=== PATIENT | female | born 1955 | race Caucasian/White ===

== ENCOUNTER 2023-02-26 12:18 | Inpatient (IN) | payer OTHER ==
[~2023-02-26] VITALS: Ht 154.9 cm; Wt 64.9 kg
--- NOTE | 2023-02-26 12:20 | NUR ---
MANISH FROM URGENT CARE THIS MORNING COMPLAINING ABOUT CHEST HEAVINESS FOR X1 DAY WITH LEFT ARM WEAKNESS AND DIZZINESS. ASSISTED TO ER BED 4 PLACED ON MAINTENANCE CLERK. AWAITING MD FOR EVAL.
[2023-02-26 12:38] LABS: BASOPHILS # (AUTO) 0.1 K/uL (0.0-0.2); BASOPHILS % (AUTO) 0.7 % (0.0-2.0); EOSINOPHILS % (AUTO) 0.6 % (0.0-6.0); HEMATOCRIT 37 % (33-45); HEMOGLOBIN 11.9 g/dL (11.5-14.8); LYMPHOCYTES # (AUTO) 2.1 K/uL (0.8-4.8); LYMPHOCYTES % (AUTO) 18.5 % (20.0-44.0); MEAN CORPUSCULAR HGB CONC 32 g/dl (31.0-36.0); MEAN CORPUSCULAR VOLUME 89 fL (82-100); MONOCYTES # (AUTO) 0.6 K/uL (0.1-1.30); MONOCYTES % (AUTO) 5.3 % (2.0-12.0); NEUTROPHILS # (AUTO) 8.5 K/uL (1.8-8.9); NEUTROPHILS % (AUTO) 74.9 % (43.0-81.0); PLATELET COUNT (AUTO) 324 K/uL (150-450); RED BLOOD CELL COUNT(AUTO) 4.13 MIL/uL (4.0-5.2); WHITE BLOOD COUNT (AUTO) 11.3 K/uL (4.3-11.0)
[2023-02-26] MEDS ORDERED: ADENOSINE 6 MG/2 ML VIAL ONE ×2 (12:45→15:38)
[2023-02-26 12:46] LABS: CALCIUM, SERUM 9.1 mg/dL (8.5-10.1); CARBON DIOXIDE 22 mmol/L (21-32); CHLORIDE 105 mmol/L (98-107); CREATININE 1.2 mg/dL (0.6-1.3); GLUCOSE 123 mg/dL (74-106); POTASSIUM 4.4 mmol/L (3.5-5.1); SODIUM SERUM 136 mmol/L (136-145); UREA NITROGEN, BLOOD 20 mg/dL (7-18)
--- NOTE | 2023-02-26 12:50 | NUR ---
ADENOSINE 6MG IV PUSH GIVEN ORDERED , PATIENT PLACED ON 12 LEADS CRYPTOLOGIC TECHNICIAN TECHNICAL WITH RT,RN AT BEDSIDE. PATIENT HEART RATE CONVERTED FROM 140 TO 80 , NO SIGNS AND SYMPTOMS OF DISTRESS THIS MOMENT , VITAL SIGN STABLE. PLAN OF CARE CONTINUES .
[2023-02-26] MEDS ORDERED: ADENOSINE 6 MG/2 ML VIAL IVP ONE ×2 (13:00→16:00)
[2023-02-26 13:03] LABS: ALANINE AMINOTRANSFERASE 29 U/L (12-78); ALBUMIN 3.5 g/dL (3.4-5.0); ALKALINE PHOSPHATASE 74 U/L (46-116); ASPARTATE AMINOTRANSFERASE 22 U/L (15-37); BILIRUBIN,DIRECT 0.1 mg/dL (0.0-0.2); BILIRUBIN,TOTAL 0.3 mg/dL (0.2-1.0); TOTAL PROTEIN, SERUM 7.5 g/dL (6.4-8.2)
[2023-02-26] MEDS ORDERED: ASPIRIN 325 MG TABLET ONE (13:09)
--- NOTE | 2023-02-26 13:15 | NUR ---
COVID SWAB TAKEN SENT TO LAB
[2023-02-26] MEDS ORDERED: ASPIRIN 325 MG TABLET PO ONE (13:30)
[2023-02-26] MEDS ORDERED: ONDANSETRON HCL/PF 4 MG/2 ML VIAL IVP PRN (14:00)
[2023-02-26] MEDS ORDERED: ACETAMINOPHEN 325 MG TABLET PO PRN (14:00)
--- NOTE | 2023-02-26 14:21 | NUR ---
bed assigned= [id number]
[2023-02-26] MEDS ORDERED: VALS80TA31 PO (14:28)
[2023-02-26] MEDS ORDERED: SIMV-49 PO (14:28)
[2023-02-26] MEDS ORDERED: BUPR-319 PO (14:28)
[2023-02-26] MEDS ORDERED: ALEN35TA51 PO (14:28)
[2023-02-26] MEDS ORDERED: GABA300C PO (14:28)
--- NOTE | 2023-02-26 14:37 | NUR ---
REPORT GIVEN TO JARRELL BRIDGES
--- NOTE | 2023-02-26 15:28 | NUR ---
HEART RATE WENT REMINGTON TO 140'S , MADE AWARE , REPEAT EKG AWARE
--- NOTE | 2023-02-26 16:04 | NUR ---
2ND ADENOSINE 6MG GIVEN IV PUSH , RT RN AT BEDSIDE. HEART RATE CONVERTED TO 140 TO 80. NO SIGNS AND SYMPTOMS OF DISTRESS POST MEDICATION ADMINISTRATION. WILL TRANSFER PATIENT TO ROOM ASSIGNMENT.
--- NOTE | 2023-02-26 16:12 | NUR ---
QUILT STUFFER NOTE PER LAB, PATIENT HAS TROPONIN LEVEL OF 174. DR TERRAZAS NOTIFIED.
--- NOTE | 2023-02-26 16:20 | NUR ---
BRIM CUTTER NOTE RECEIVED PATIENT FROM ER.
--- NOTE | 2023-02-26 16:22 | NUR ---
MOVED TO INPATIENT ROOM SAFELY PER ACLS PROTOCOL
[2023-02-26] MEDS: ENOXAPARIN SODIUM 40 MG/0.4 ML DISP.SYRIN SQ SCH (17:30)
[2023-02-26] MEDS ORDERED: GABAPENTIN 300 MG CAPSULE PO PRN (18:30)
[2023-02-26] MEDS ORDERED: VALSARTAN 80 MG TABLET PO SCH (18:30)
[2023-02-26] MEDS: SIMVASTATIN 20 MG TABLET PO SCH (18:35)
--- NOTE | 2023-02-26 18:59 | NUR ---
RN NOTES FOR 1700 MEDS MEDICATION NOT IN [facility] UNTIL 1830. TOO CLOSE TO NEXT DOSE.
--- NOTE | 2023-02-26 19:34 | NUR ---
MANAGER COUNCIL CLOSING NOTES PATIENT IN BED WATCHING TV. A/O X4. ON ROOM AIR WITH NO S/S OF DISTRESS OR SOB. BREATHING EVEN AND UNLABORED. CURRENTLY ON TELE MONITOR SHOWING SR 76. DEFIBRILLATOR PADS ON IN CASE OF EMERGENCY. PATIENT IS AMBULATORY. SKIN INTACT. SAFETY PRECAUTIONS IN PLACE WITH BED IN LOWEST AND LOCKED POSITION, SIDE RAILS UP X2, AND CALL LIGHT AND TABLE WITHIN REACH. WILL ENDORSE TO ONCOMING SHIFT FOR SERINA.
[2023-02-26 20:00] VITALS: BP 105/65
--- NOTE | 2023-02-26 20:39 | NUR ---
RN NOTE RECEIVED CRITICAL FROM LAB. TROPONIN 230, TRENDING UP FROM 174. EDENILSON CARLISLE NOTIFIED WITH NO NEW ORDERS.
--- NOTE | 2023-02-26 22:03 | NUR ---
VETERINARIAN ASSISTANT OPENING NOTE PT RECEIVED IN BED, AWAKE, A/O X4, CALM, COOPERATIVE. PER PT, SHE WAS PICKING UP A SPOON TO POUR CAT FOOD INTO BOWL, WHEN SUDDENLY SHE LOST CONTROL OF ARM MOVEMENT AND STARTED EXPERIENCING CHEST PAIN. PT REPORTS PAIN IS LOCATED UNDER HER LEFT BREAST, NON-RADIATING, FEELS LIKE A "BRICK IS PUTTING PRESSURE". PT ALSO REPORTS OF HISTORY OF RECEIVING SURGERY ON HER LEFT FOOT FOR OSTEOPOROSIS AND CURRENTLY TAKES ALENDRONATE 35 MG; OTHER HISTORY INCLUDES HAVING SURGERY FOR LEFT ROTATOR CUFF INJURY. PT ON RA WITH O2SAT OF 97%; NO S/S OF RESP DISTRESS. PT ATTACHED TO TELE MONITOR, SR WITH HR OF 71; WILL MONITOR FOR ANY CHANGES TO RHYTHM. IV ACCESS ON RAC 18G INTACT AND PATENT, FLUSHES EASILY WITH NO RESISTANCE. BED IN LOWEST POSITION, CALL LIGHT WITHIN REACH, SIDE RAILS UP X2. WILL CONTINUE TO MONITOR THROUGHOUT THE NIGHT.
--- NOTE | 2023-02-26 23:44 | NUR ---
RN NOTE RECEIVED CRITICAL FROM LAB. TROPONIN 192, NOTED TO BE TRENDING DOWN FROM 230.
[2023-02-27] VITALS: BP 94/58
[2023-02-27 04:00] VITALS: BP 98/54
[2023-02-27 06:15] LABS: BASOPHILS % (AUTO) 0.6 % (0.0-2.0); EOSINOPHILS % (AUTO) 1.5 % (0.0-6.0); HEMATOCRIT 34 % (33-45); HEMOGLOBIN 11.1 g/dL (11.5-14.8); LYMPHOCYTES # (AUTO) 2.6 K/uL (0.8-4.8); LYMPHOCYTES % (AUTO) 34.5 % (20.0-44.0); MEAN CORPUSCULAR HGB CONC 33 g/dl (31.0-36.0); MEAN CORPUSCULAR VOLUME 89 fL (82-100); MONOCYTES # (AUTO) 0.5 K/uL (0.1-1.30); MONOCYTES % (AUTO) 6.4 % (2.0-12.0); NEUTROPHILS # (AUTO) 4.2 K/uL (1.8-8.9); PLATELET COUNT (AUTO) 302 K/uL (150-450); RED BLOOD CELL COUNT(AUTO) 3.79 MIL/uL (4.0-5.2); WHITE BLOOD COUNT (AUTO) 7.4 K/uL (4.3-11.0)
[2023-02-27 07:09] LABS: THYROID STIMULATING HORMONE 3.782 uIU/mL (0.358-3.74)
[2023-02-27 07:12] LABS: CALCIUM, SERUM 9.1 mg/dL (8.5-10.1); CREATININE 0.9 mg/dL (0.6-1.3); MAGNESIUM 2.4 mg/dL (1.8-2.4); PHOSPHORUS 3.6 mg/dL (2.5-4.9)
--- NOTE | 2023-02-27 07:47 | NUR ---
OPTICAL ELEMENT COATER CLOSING NOTE PT REMAINS IN BED, AWAKE, A&O X4, EATING BREAKFAST. CONTINUES TO BE ON RA WITH O2SAT RANGING FROM 97%-99% WITH NO SIGNS OF RESP DISTRESS, NO SOB OR COUGH, NON-LABORED AND EQUAL BREATHING. ATTACHED TO TELE MONITOR AND WAS SR THROUGHOUT THE WHOLE NIGHT WITH HR RANGING FROM 66-71. PT'S PAIN REPORTED TO BE BETTER COMPARED TO LAST NIGHT. ALL DUE MEDS ADMINISTERED DURING THE NIGHT. BED IN LOWEST POSITION, CALL LIGHT WITHIN REACH, SIDE RAILS UP X2. WILL ENDORSE TO DAYSHIFT NURSE TO CONTINUE CARE.
[2023-02-27 08:00] VITALS: BP 111/61
[2023-02-27] MEDS ORDERED: IV NS 0.9% 250 ML IV ONE ×2 (08:30→09:19)
[2023-02-27] MEDS: PANTOPRAZOLE 40 MG TABLET.DR PO SCH (08:34)
[2023-02-27] MEDS: BUPROPION XL 150 MG TAB.ER.24 PO SCH (09:05)
[2023-02-27] MEDS ORDERED: IOHEXOL-350 100 ML VIAL IV ONE (09:18)
[2023-02-27] MEDS ORDERED: NITROGLYCERIN 0.4 MG/TAB BOTTLE ONE (09:18)
[2023-02-27] MEDS ORDERED: METOPROLOL TARTRATE INJ 5 MG/5 ML AMPUL ONE (09:19)
[2023-02-27] MEDS ORDERED: CT SWABBABLE VALVE TRANS SET 1 EA INFUS.SET MC ONE (09:19)
--- NOTE | 2023-02-27 10:10 | NUR ---
RN NOTE PATIENT LEFT FOR CT ANGIO HEART WITH 3DIMAGING , CONSENT SIGNED AND PLACED IN CHART. IV 250 NS HELD AT THIS TIME.
[2023-02-27] MEDS ORDERED: NITROGLYCERIN 0.4 MG/TAB BOTTLE SL ONE (10:30)
[2023-02-27] MEDS ORDERED: METOPROLOL TARTRATE INJ 5 MG/5 ML AMPUL IVP PRN (10:30)
[2023-02-27 12:00] VITALS: BP 114/80
[2023-02-27] MEDS ORDERED: METOPROLOL TARTRATE 50 MG TABLET PO SCH ×3 (13:00→21:00)
[2023-02-27] MEDS ORDERED: ADENOSINE 6 MG/2 ML VIAL IVP ONE (13:00)
--- NOTE | 2023-02-27 13:31 | NUR ---
patient cardioverted adenosine 6mg ivp given via acls protocol per dr. bah.
--- NOTE | 2023-02-27 13:35 | NUR ---
dr. bah notified patient converted SR but bp 90/60 new orders for ns bolus given.
--- NOTE | 2023-02-27 13:42 | NUR ---
will continue to monitoer.
[2023-02-27] MEDS ORDERED: IV NS 0.9% 500 ML IV ONE (14:00)
[2023-02-27 14:51] LABS: BILIRUBIN,URINE NEGATIVE (NEGATIVE); COLOR,URINE YELLOW (YELLOW); LEUKOCYTE ESTERASE ,URINE TRACE (NEGATIVE); NITRITE, URINE NEGATIVE (NEGATIVE); PROTEIN,URINE NEGATIVE (NEGATIVE); UGLUCOSE NEGATIVE (NEGATIVE); UROBILINOGEN,URINE 0.2 EU/dL (0.2)
[2023-02-27] MEDS: ENOXAPARIN SODIUM 40 MG/0.4 ML DISP.SYRIN SQ SCH (14:52)
[2023-02-27 15:49] LABS: BACTERIA,URINE 2+ /HPF (None Seen); RBC,URINE 0-2 /HPF (0-2)
[2023-02-27 16:00] VITALS: BP 123/54
[2023-02-27] MEDS: ASPIRIN EC 81 MG TABLET.DR PO SCH (16:16)
[2023-02-27] MEDS: SIMVASTATIN 20 MG TABLET PO SCH (18:00)
--- NOTE | 2023-02-27 19:30 | NUR ---
RN CLOSING NOTE PATIENT A/OX4. BREATHING ON ROOM AIR AT 99%. VITAL SIGNS STABLE AT THIS TIME. ALL SAFETY MEASURES IN PLACE, WILL ENDORSE CONTINUITY OF CARE TO INDUSTRIAL PAINTER.
--- NOTE | 2023-02-27 19:50 | NUR ---
BAKING FACTORY WORKER OPENING NOTES RECEIVED PATIENT IN BED, AWAKE, ALERT AND ORIENTED. A/O X4. ON ROOM AIR, BREATHING EVEN AND UNLABORED, NO S/S OF DISTRESS OR SOB NOTED. IV ACCESS RAC #18G, SL, INTACT, PATENT AND FLUSHING WELL. ON TELE MONITOR WITH CURRENT READING OF SR. NO S/S OF PAIN NOTED AT THIS TIME. SAFETY MEASURES IN PLACE WITH BED IN LOWEST AND LOCKED POSITION. BED ALARM ON. SIDE RAILS UP X 2. CALL LIGHT AND TRAY WITHIN EASY REACH. WILL CONTINUE WITH THE PLAN OF CARE.
[2023-02-27 20:00] VITALS: BP 85/56
--- NOTE | 2023-02-27 20:59 | NUR ---
RN NOTES- CONSTIPATION PATIENT C/O OF CONSTIPATION FOR 2 DAYS. INFORMED EDENILSON CARLISLE. ORDERED 30CC MOM X 1. WILL CARRY OUT ORDER TO THE PATIENT.
[2023-02-27] MEDS ORDERED: MAGNESIUM HYDROXIDE 30 ML UDC PO PRN ×2 (21:30)
--- NOTE | 2023-02-27 21:57 | NUR ---
RN NOTES- WITHHELD LOPRESSOR PATIENT BP IS 105/60 TAKEN MANUALLY ON THE LEFT ARM. HR IS 56. LOPRESSOR NOT GIVEN. CN INFORMED. WILL CONTINUE TO MONITOR THE PATIENT.
[2023-02-28] VITALS: BP 95/56
[2023-02-28 04:00] VITALS: BP 99/64
--- NOTE | 2023-02-28 06:53 | NUR ---
SURGICAL NURSE CLOSING NOTES PATIENT IN BED SLEEPING COMFORTABLY. EASILY BE AWAKEN BY VERBAL STIMULI. A/O X4. ON ROOM AIR, BREATHING EVEN AND UNLABORED, NO S/S OF DISTRESS OR SOB NOTED. IV ACCESS RAC #18G, SL, INTACT, PATENT AND FLUSHING WELL. ON TELE MONITOR WITH CURRENT READING OF SB @ 59. NO S/S OF PAIN NOTED AT THIS TIME. SAFETY MEASURES MAINTAINED WITH BED IN LOWEST AND LOCKED POSITION. BED ALARM ON. SIDE RAILS UP X 2. CALL LIGHT AND TRAY WITHIN EASY REACH. WILL ENDORSE TO THE NEXT SHIFT.
--- NOTE | 2023-02-28 07:29 | NUR ---
GENERAL ASSIGNMENT REPORTER OPENING NOTES PATIENT IN BED SLEEPING COMFORTABLY. ON ROOM AIR, BREATHING EVEN AND UNLABORED, NO S/S OF DISTRESS OR SOB NOTED. IV ACCESS RAC #18G, SL, INTACT, PATENT AND FLUSHING WELL. SAFETY MEASURES MAINTAINED WITH BED IN LOWEST AND LOCKED POSITION. BED ALARM ON. SIDE RAILS UP X 2. CALL LIGHT AND TRAY WITHIN EASY REACH. WILL CONTINUE TO MONITOR.
[2023-02-28] MEDS ORDERED: METO25TA4 PO (08:19)
[2023-02-28] MEDS ORDERED: Aspirin Ec PO (08:19)
[2023-02-28] MEDS ORDERED: CEPH250C PO (08:25)
--- NOTE | 2023-02-28 08:26 | NUR ---
RN NOTE DOCTOR NINI STATED NOT TO HOLD METOPROLOL SUCCINATE (TOPROL). DOCTOR AWARE PATIENT'S HEART RATE IS AT 58.
[2023-02-28] MEDS ORDERED: CEPHALEXIN MONOHYDRATE 250 MG CAPSULE PO SCH (08:30)
[2023-02-28] MEDS: PANTOPRAZOLE 40 MG TABLET.DR PO SCH (08:35)
[2023-02-28] MEDS: BUPROPION XL 150 MG TAB.ER.24 PO SCH (08:36)
[2023-02-28] MEDS: ASPIRIN EC 81 MG TABLET.DR PO SCH (08:36)
[2023-02-28] MEDS: LACTULOSE 10 G/15 ML UDC (PYXIS) PO ONE ×2 (08:45→08:47)
[2023-02-28] MEDS ORDERED: CEFTRIAXONE 1 G in IV D5W 50 ML IV SCH (09:00)
[2023-02-28] MEDS ORDERED: METOPROLOL SUCCINATE 25 MG TAB.SR.24H PO SCH (09:00)
[2023-02-28 11:42] VITALS: BP 100/60
[2023-02-28] MEDS: SIMVASTATIN 20 MG TABLET PO SCH (11:42)
--- NOTE | 2023-02-28 11:43 | NUR ---
RN NOTES FOR MEDS 4/4 AND 4/5 MEDICATION NOT ADMINISTERED BY RN ASSIGNED ON BOTH DAYS.
[2023-02-28] MEDS ORDERED: LEVOFLOXACIN (250MG) 250 MG TABLET PO SCH (12:00)
[2023-02-28] MEDS ORDERED: LEVO500T90 PO ×2 (12:03→12:06)
[2023-02-28] MEDS: ENOXAPARIN SODIUM 40 MG/0.4 ML DISP.SYRIN SQ SCH (15:20)
[2023-03-01] MEDS ORDERED: LEVOFLOXACIN (250MG) 250 MG TABLET PO SCH (09:00)
[2023-03-02] MEDS ORDERED: ALENDRONATE 35 MG TABLET PO SCH (09:00)
== END 2023-02-28 16:46 | disposition home health service (06) | DRG 309 ==
LOC: ER 12:22 → TELE1 14:42
PROVIDERS: ADMIT Nurse Practitioner Acute Care; ATTEND Internal Medicine
DX: I47.1 Supraventricular tachycardia (principal); N17.9 Acute kidney failure, unspecified; I10 Essential (primary) hypertension; E78.5 Hyperlipidemia, unspecified; D72.829 Elevated white blood cell count, unspecified; Z79.82 Long term (current) use of aspirin; Z79.899 Other long term (current) drug therapy
CPT/HCPCS: 36415; 71045-TC; 75574; 80048-TC; 80061-TC; 80076-TC; 81001; 83735-TC; 83880; 84100-TC; 84443-TC; 84484-TC; 85025-TC; 87081-TC; 87086-TC; 93307-TC; A4223; C9803; G0378; J0153; J0696; J1650; J3490; J7030; J7050; J7060; Q9967

== ENCOUNTER 2023-07-14 00:24 | Inpatient (IN) | payer OTHER ==
[~2023-07-14] VITALS: Ht 154.9 cm; Wt 74.8 kg
[~2023-07-14 00:24] MED LIST: ATOR40TA PO; BUPR-319 PO; DILT-2 PO
[2023-07-14 00:27] VITALS: TEMP 98.2
[2023-07-14 01:21] LABS: BASOPHILS # (AUTO) 0.1 K/uL (0.0-0.2); BASOPHILS % (AUTO) 0.6 % (0.0-2.0); EOSINOPHILS # (AUTO) 0.1 K/uL (0.0-0.7); EOSINOPHILS % (AUTO) 1.1 % (0.0-6.0); HEMATOCRIT 37 % (33-45); HEMOGLOBIN 12.1 g/dL (11.5-14.8); LYMPHOCYTES # (AUTO) 1.6 K/uL (0.8-4.8); LYMPHOCYTES % (AUTO) 16.2 % (20.0-44.0); MEAN CORPUSCULAR HEMOGLOBIN 29 PG (26.0-33.0); MEAN CORPUSCULAR HGB CONC 33 g/dl (31.0-36.0); MEAN CORPUSCULAR VOLUME 89 fL (82-100); MONOCYTES # (AUTO) 0.4 K/uL (0.1-1.30); MONOCYTES % (AUTO) 4.3 % (2.0-12.0); NEUTROPHILS # (AUTO) 7.7 K/uL (1.8-8.9); NEUTROPHILS % (AUTO) 77.8 % (43.0-81.0); PLATELET COUNT (AUTO) 301 K/uL (150-450); RED BLOOD CELL COUNT(AUTO) 4.16 MIL/uL (4.0-5.2); RED CELL DISTRIBUTION WIDTH 14.8 % (11.5-15.0); WHITE BLOOD COUNT (AUTO) 9.9 K/uL (4.3-11.0)
[2023-07-14 01:35] LABS: CALCIUM, SERUM 9.4 mg/dL (8.5-10.1); CARBON DIOXIDE 22 mmol/L (21-32); CHLORIDE 109 mmol/L (98-107); GLUCOSE 131 mg/dL (74-106); POTASSIUM 4.4 mmol/L (3.5-5.1); SODIUM SERUM 141 mmol/L (136-145); UREA NITROGEN, BLOOD 18 mg/dL (7-18)
[2023-07-14 01:47] LABS: NT-PRO BNP 1294 pg/mL (0-125)
[2023-07-14 03:14] LABS: APPEARANCE,URINE CLEAR (CLEAR); BILIRUBIN,URINE NEGATIVE (NEGATIVE); BLOOD, URINE NEGATIVE Ery/uL (NEGATIVE); COLOR,URINE YELLOW (YELLOW); KETONES,URINE NEGATIVE (NEGATIVE); LEUKOCYTE ESTERASE ,URINE TRACE (NEGATIVE); NITRITE, URINE NEGATIVE (NEGATIVE); PROTEIN,URINE NEGATIVE (NEGATIVE); UGLUCOSE NEGATIVE (NEGATIVE); UROBILINOGEN,URINE 0.2 EU/dL (0.2)
[2023-07-14] MEDS ORDERED: ASPIRIN 325 MG TABLET PO ONE (04:30)
[2023-07-14 06:22] VITALS: BP 111/91; O2SAT 99
[2023-07-14] MEDS ORDERED: ASPI-1420 PO (08:53)
[2023-07-14] MEDS ORDERED: GABA300C PO (08:53)
[2023-07-14] MEDS ORDERED: BUPROPION XL 150 MG TAB.ER.24 PO SCH (09:00)
[2023-07-14] MEDS ORDERED: METOPROLOL TARTRATE 25 MG TABLET PO SCH (10:00)
[2023-07-14] MEDS ORDERED: DILTIAZEM HCL CD 120 MG PO SCH (18:00)
[2023-07-14] MEDS ORDERED: ATORVASTATIN 40 MG TABLET PO SCH (22:00)
== END 2023-07-14 10:02 | disposition home or self-care (01) | DRG 282 ==
LOC: ER 00:25 → TELE1 07:38
PROVIDERS: ADMIT Internal Medicine; ATTEND Internal Medicine
DX: I47.1 Supraventricular tachycardia (principal); I21.A1 Myocardial infarction type 2; I10 Essential (primary) hypertension; E78.5 Hyperlipidemia, unspecified; Z20.822 Contact with and (suspected) exposure to COVID-19
CPT/HCPCS: 36415; 71045-TC; 80048-TC; 83880; 84484-TC; 85025-TC; C9803; G0378

== ENCOUNTER 2023-08-02 09:09 | Inpatient (IN) | payer OTHER ==
[~2023-08-02] VITALS: Ht 172.7 cm; Wt 70.8 kg
[~2023-08-02 09:09] MED LIST changes: +ASPI-1420 PO; +GABA300C PO
[2023-08-02 09:53] LABS: BASOPHILS % (AUTO) 0.5 % (0.0-2.0); EOSINOPHILS # (AUTO) 0.1 K/uL (0.0-0.7); EOSINOPHILS % (AUTO) 2.2 % (0.0-6.0); HEMATOCRIT 36 % (33-45); HEMOGLOBIN 11.9 g/dL (11.5-14.8); LYMPHOCYTES # (AUTO) 1.8 K/uL (0.8-4.8); LYMPHOCYTES % (AUTO) 27.1 % (20.0-44.0); MEAN CORPUSCULAR HEMOGLOBIN 29 PG (26.0-33.0); MEAN CORPUSCULAR HGB CONC 33 g/dl (31.0-36.0); MEAN CORPUSCULAR VOLUME 89 fL (82-100); MONOCYTES # (AUTO) 0.5 K/uL (0.1-1.30); MONOCYTES % (AUTO) 8.2 % (2.0-12.0); NEUTROPHILS # (AUTO) 4.1 K/uL (1.8-8.9); PLATELET COUNT (AUTO) 262 K/uL (150-450); RED BLOOD CELL COUNT(AUTO) 4.05 MIL/uL (4.0-5.2); RED CELL DISTRIBUTION WIDTH 14.2 % (11.5-15.0); WHITE BLOOD COUNT (AUTO) 6.6 K/uL (4.3-11.0)
[2023-08-02 09:59] LABS: APPEARANCE,URINE CLEAR (CLEAR); BILIRUBIN,URINE 1+ (NEGATIVE); BLOOD, URINE NEGATIVE Ery/uL (NEGATIVE); COLOR,URINE YELLOW (YELLOW); KETONES,URINE NEGATIVE (NEGATIVE); LEUKOCYTE ESTERASE ,URINE 1+ (NEGATIVE); NITRITE, URINE NEGATIVE (NEGATIVE); PH,URINE 6.5 (5.0-8.0); PROTEIN,URINE NEGATIVE (NEGATIVE); UGLUCOSE NEGATIVE (NEGATIVE)
[2023-08-02 10:02] LABS: CALCIUM, SERUM 8.9 mg/dL (8.5-10.1); CARBON DIOXIDE 23 mmol/L (21-32); CHLORIDE 108 mmol/L (98-107); CREATININE 0.9 mg/dL (0.6-1.3); GLUCOSE 111 mg/dL (74-106); POTASSIUM 4.1 mmol/L (3.5-5.1); SODIUM SERUM 139 mmol/L (136-145); UREA NITROGEN, BLOOD 20 mg/dL (7-18)
[2023-08-02 10:14] LABS: ADD URINE CULTURE YES; BACTERIA,URINE Rare /HPF (None Seen); RBC,URINE 0-2 /HPF (0-2); SQUAMOUS EPITHELIAL CELL,UR Few /HPF (None Seen)
[2023-08-02 10:16] LABS: NT-PRO BNP 96 pg/mL (0-125)
[2023-08-02] MEDS ORDERED: NITROFURANTOIN/MONOHYDRATE MACROCRYSTALS 100 MG CAPSULE PO ONE (10:30)
[2023-08-02] MEDS ORDERED: NITROFURANTOIN/MONOHYDRATE MACROCRYSTALS 100 MG CAPSULE ONE (10:31)
[2023-08-02] MEDS ORDERED: ALEN35TA51 PO (13:42)
[2023-08-02] MEDS ORDERED: CARI350T PO (13:42)
[2023-08-02] MEDS ORDERED: METO25TA4 PO (13:42)
[2023-08-02] MEDS ORDERED: ACETAMINOPHEN ES 500 MG TABLET PO PRN (15:00)
[2023-08-02] MEDS ORDERED: GABAPENTIN 300 MG CAPSULE PO PRN (15:00)
[2023-08-02] MEDS ORDERED: CEFTRIAXONE 1 G in IV D5W 50 ML IV SCH (15:00)
[2023-08-02] MEDS ORDERED: ZOLPIDEM TARTRATE 5 MG TABLET PO PRN (15:00)
[2023-08-02] MEDS ORDERED: ALENDRONATE 35 MG TABLET PO SCH (15:00)
[2023-08-02] MEDS ORDERED: IBUPROFEN 400 MG TABLET PO PRN (15:00)
[2023-08-02 15:50] VITALS: BP 108/88; TEMP 98.1
[2023-08-02 16:00] VITALS: BP 116/86; TEMP 98.2; O2SAT 97
[2023-08-02] MEDS ORDERED: LEVOFLOXACIN (250MG) 250 MG TABLET PO SCH (16:00)
[2023-08-02 20:00] VITALS: BP 102/70; TEMP 97.9; O2SAT 97
[2023-08-02] MEDS ORDERED: ATORVASTATIN 40 MG TABLET PO SCH (22:00)
[2023-08-02] MEDS ORDERED: METOPROLOL SUCCINATE 25 MG TAB.SR.24H PO SCH (22:00)
[2023-08-03 00:23] VITALS: BP 94/60; TEMP 97.5; O2SAT 99
[2023-08-03 04:00] VITALS: BP 102/65; TEMP 97.3; O2SAT 98
[2023-08-03 08:00] VITALS: BP 105/67; TEMP 97.9; O2SAT 97
[2023-08-03 08:11] LABS: BASOPHILS % (AUTO) 0.6 % (0.0-2.0); EOSINOPHILS # (AUTO) 0.2 K/uL (0.0-0.7); EOSINOPHILS % (AUTO) 2.9 % (0.0-6.0); HEMATOCRIT 35 % (33-45); HEMOGLOBIN 11.4 g/dL (11.5-14.8); LYMPHOCYTES # (AUTO) 1.9 K/uL (0.8-4.8); LYMPHOCYTES % (AUTO) 28.5 % (20.0-44.0); MEAN CORPUSCULAR HEMOGLOBIN 29 PG (26.0-33.0); MEAN CORPUSCULAR HGB CONC 33 g/dl (31.0-36.0); MEAN CORPUSCULAR VOLUME 89 fL (82-100); MONOCYTES # (AUTO) 0.5 K/uL (0.1-1.30); MONOCYTES % (AUTO) 7.7 % (2.0-12.0); NEUTROPHILS % (AUTO) 60.3 % (43.0-81.0); PLATELET COUNT (AUTO) 246 K/uL (150-450); RED BLOOD CELL COUNT(AUTO) 3.91 MIL/uL (4.0-5.2); RED CELL DISTRIBUTION WIDTH 14.1 % (11.5-15.0); WHITE BLOOD COUNT (AUTO) 6.7 K/uL (4.3-11.0)
[2023-08-03 08:21] LABS: CALCIUM, SERUM 9.4 mg/dL (8.5-10.1); CREATININE 0.8 mg/dL (0.6-1.3)
[2023-08-03] MEDS ORDERED: CEPH500C2 PO (08:35)
[2023-08-03] MEDS ORDERED: BUPROPION XL 150 MG TAB.ER.24 PO SCH (09:00)
[2023-08-03] MEDS ORDERED: ASPIRIN EC 81 MG TABLET.DR PO SCH (09:00)
[2023-08-03 12:00] VITALS: BP 104/62; TEMP 98.2; O2SAT 98
[2023-08-04] MEDS ORDERED: LEVOFLOXACIN (250MG) 250 MG TABLET PO SCH ×2 (10:00)
== END 2023-08-03 14:18 | disposition home health service (06) | DRG 563 ==
LOC: ER 09:25 → TELE1 14:14
PROVIDERS: ADMIT Internal Medicine; ATTEND Internal Medicine
DX: S29.011A Strain of muscle and tendon of front wall of thorax, initial encounter (principal); N39.0 Urinary tract infection, site not specified; R77.8 Other specified abnormalities of plasma proteins; E78.5 Hyperlipidemia, unspecified; I10 Essential (primary) hypertension; I25.10 Atherosclerotic heart disease of native coronary artery without angina pectoris; Z98.890 Other specified postprocedural states; R32 Unspecified urinary incontinence; X58.XXXA Exposure to other specified factors, initial encounter; Y93.9 Activity, unspecified; Y92.009 Unspecified place in unspecified non-institutional (private) residence as the place of occurrence of the external cause
CPT/HCPCS: 36415; 71045-TC; 80048-TC; 81001; 83880; 84484-TC; 85025-TC; 87086-TC; 93307-TC; 97116-TC; 97530-TC; G0378